=== PATIENT | male | born 1985 | race Caucasian/White ===

== ENCOUNTER 2022-10-05 19:04 | Emergency (ER) | payer OTHER ==
[2022-10-05 19:17] VITALS: BP 138/91; PULSE 68; RESP 15; TEMP 97.7; BMI 28.1
== END 2022-10-05 20:25 | disposition home or self-care (01) ==
LOC: FER 19:04
DX: S60.419A Abrasion of unspecified finger, initial encounter (principal); Z77.21 Contact with and (suspected) exposure to potentially hazardous body fluids; W25.XXXA Contact with sharp glass, initial encounter
CPT/HCPCS: 36415; 87340; 99283-25

== ENCOUNTER 2022-10-06 23:45 | Emergency (ER) | payer OTHER ==
[2022-10-06 23:53] VITALS: RESP 16; BMI 28.1
[2022-10-07 00:08] VITALS: BP 130/91; PULSE 67; TEMP 97.8
[2022-10-07 05:51] LABS: HIV INTERPRETATION NEGATIVE (NEGATIVE)
== END 2022-10-07 00:45 | disposition home or self-care (01) ==
LOC: FER 23:45
DX: Z77.21 Contact with and (suspected) exposure to potentially hazardous body fluids (principal)
CPT/HCPCS: 36415; 86704; 86803; 87389; 87517; 99283-25